=== PATIENT | male | born 1975 | race Caucasian/White ===

== ENCOUNTER 2018-01-01 14:50 | Emergency (ER) | payer MEDICAID, OTHER ==
[~2018-01-01] VITALS: Ht 182.9 cm; Wt 91.0 kg
[2018-01-01 15:18] VITALS: BP 119/69
[2018-01-01] MEDS ORDERED: SULF1TAB49 PO (16:19)
[2018-01-01] MEDS ORDERED: CEPH-572 PO (16:19)
== END 2018-01-01 16:31 | disposition home or self-care (01) ==
LOC: ER 14:53
DX: L03.115 Cellulitis of right lower limb (principal); Z79.899 Other long term (current) drug therapy
CPT/HCPCS: 99283

== ENCOUNTER 2018-11-22 14:54 | Emergency (ER) | payer OTHER ==
[~2018-11-22] VITALS: Ht 170.2 cm; Wt 104.5 kg
[2018-11-22 14:57] VITALS: BP 130/81
--- NOTE | 2018-11-22 15:19 | NUR ---
Pt seen by Smith PA for medical clearance.
== END 2018-11-22 15:34 ==
LOC: ER 14:55
DX: S20.419A Abrasion of unspecified back wall of thorax, initial encounter (principal); Z02.89 Encounter for other administrative examinations; Z98.890 Other specified postprocedural states; X58.XXXA Exposure to other specified factors, initial encounter; Y93.89 Activity, other specified; Y92.89 Other specified places as the place of occurrence of the external cause; Y99.8 Other external cause status
CPT/HCPCS: 99283

== ENCOUNTER 2024-10-30 11:18 | Day surgery (SDC) | payer MEDICAID, OTHER ==
[2024-10-28 11:15] LABS: BASOPHILS # (AUTO) 0.1 X10'3 (0-0.2); BASOPHILS % (AUTO) 0.9 % (0-1); EOSINOPHILS # (AUTO) 0.1 X10'3 (0-0.9); EOSINOPHILS % (AUTO) 1.2 % (0-6); LYMPHOCYTES # (AUTO) 2.4 X10'3 (1.1-4.8); LYMPHOCYTES % (AUTO) 26.9 % (21-51); MEAN CORPUSCULAR HEMOGLOBIN 31.5 PG (27.0-31.0); MEAN CORPUSCULAR HGB CONC 34.7 g/dL (33.0-36.5); MEAN CORPUSCULAR VOLUME 90.8 FL (78-98); MEAN PLATELET VOLUME 9.4 FL (7.4-10.4); MONOCYTES # (AUTO) 0.8 X10'3 (0-0.9); MONOCYTES % (AUTO) 8.8 % (2-12); NEUTROPHILS # (AUTO) 5.5 X10'3 (1.8-7.7); NEUTROPHILS % (AUTO) 62.2 % (42-75); PRE OP HEMATOCRIT 44.5 % (42.0-52.0); PRE OP HEMOGLOBIN 15.4 g/dL (14.0-17.9); PRE OP PLATELET COUNT 261 X10'3 (140-440); PRE OP WHITE BLOOD COUNT 8.9 10'3 (4.8-10.8); RED CELL DISTRIBUTION WIDTH 13.3 % (11.5-14.5)
[2024-10-28 11:23] LABS: ALBUMIN 3.9 G/DL (3.4-5.0); ALBUMIN/GLOBULIN RATIO 1.1 (1.1-1.5); ALKALINE PHOSPHATASE 76 IU/L (46-116); BLOOD UREA NITROGEN 20 MG/DL (7-18); BUN/CREATININE RATIO 18.9 (10.0-20.0); CALCIUM 8.6 MG/DL (8.5-10.1); CHLORIDE 105 MMOL/L (99-107); CREATININE 1.06 MG/DL (0.60-1.10); PRE OP ALT 54 U/L (30-65); PRE OP ANION GAP 8 (8-16); PRE OP AST 20 U/L (10-37); PRE OP BILIRUB, TOTAL 0.6 MG/DL (0.0-1.0); PRE OP GLUCOSE 99 MG/DL (70-104); PRE OP POTASSIUM 4.7 MMOL/L (3.4-5.1); PRE OP SODIUM 140 MMOL/L (135-145); TOTAL CARBON DIOXIDE 27.1 MMOL/L (24-32); TOTAL PROTEIN 7.4 G/DL (6.4-8.2); eGFR 74 ML/MIN
[2024-10-30] VITALS (8 sets, daily range): BP systolic 133–159; BP diastolic 62–101; PULSE 64–99; RESP 11–16; TEMP 98; O2SAT 78–99
[~2024-10-30] VITALS: Ht 182.9 cm; Wt 118.4 kg
[2024-10-30] MEDS: ceFAZolin 2gm in dextrose, iso 50 ML IV ONE (05:30)
[~2024-10-30 11:18] MED LIST: ATOR20TA66 PO; BUDE10.2 INH; BUPIVAcaine 2.5mg/ml inj 50ml vial (contains preservative) ONE; DEXTROSE IV ONE; LIDOcaine 1% 30ml preserv. free vial ONE; LIDOcaine 2% (20mg/ml) 5ml vial ONE; OMEP20TA43 PO; SODIUM PHOSPHATE IV ONE; acetaminophen 1,000mg/100ml IV 100 ML IV ONE; dexamethasone sod phosphate 4mg/ml inj. ONE; fentaNYL/PF 50MCG/1 ML 2ML syringe ONE; midazolam 1 mg/ML 2ml injection ONE; ondansetron/PF 4mg/2ml inj ONE; potassium Cl 40MEQ/1/2NS 520ml 520 ML IV ONE; propofol inj 20 ML IV ONE
[2024-10-30] MEDS: famotidine 20mg tablet PO ONE (12:10)
[2024-10-30] MEDS: ringers solution, lacted 1,000 ML IV SCH (12:10)
[2024-10-30] MEDS ORDERED: sevoflurane 250ml liquid IH ONE (13:39)
[2024-10-30] MEDS ORDERED: fentaNYL/PF 50MCG/1 ML 2ML syringe ONE (13:42)
[2024-10-30] MEDS ORDERED: midazolam 1 mg/ML 2ml injection ONE (13:43)
[2024-10-30] MEDS ORDERED: dexamethasone sod phosphate 4mg/ml inj. ONE (13:46)
[2024-10-30] MEDS ORDERED: ondansetron/PF 4mg/2ml inj ONE (13:46)
[2024-10-30] MEDS ORDERED: propofol inj 20 ML IV ONE (13:46)
[2024-10-30] MEDS ORDERED: LIDOcaine 2% (20mg/ml) 5ml vial ONE (13:46)
[2024-10-30] MEDS ORDERED: acetaminophen 1,000mg/100ml IV 100 ML IV ONE (13:47)
[2024-10-30] MEDS: BUPIVAcaine/PF 2.5 mg/ml (0.25%) 30ml vial IJ ONE (13:57)
[2024-10-30] MEDS ORDERED: ringers solution, lacted 1,000 ML IV SCH (14:15)
[2024-10-30] MEDS ORDERED: fentaNYL/PF 50MCG/1 ML 2ML syringe IV PRN (14:15)
[2024-10-30] MEDS ORDERED: ondansetron/PF 4mg/2ml inj IV PRN (14:15)
[2024-10-30] MEDS ORDERED: morphine 4 MG/ML inj SYRINge IV PRN (14:15)
[2024-10-30] MEDS ORDERED: hydrALAZINE 20mg/ml inj. IV PRN (14:15)
[2024-10-30] MEDS ORDERED: bacitracin 15gm ointment TP ONE (14:23)
[2024-10-30] MEDS: morphine 2 MG/ML inj. syringe IV PRN (14:58)
[2024-10-30] MEDS: fentaNYL/PF 50MCG/1 ML 2ML syringe IV PRN (15:07)
[2024-10-30] MEDS: HYDROcodone/acetaminophen 5mg/325mg tablet PO PRN (15:17)
[2024-10-30] MEDS: labetalol 20mg/4ml (5mg/ml) syringe IV PRN (15:21)
== END 2024-10-30 15:50 | disposition home or self-care (01) ==
LOC: PAS 11:18
PROVIDERS: ATTEND Surgery
DX: N43.3 Hydrocele, unspecified (principal); Z79.899 Other long term (current) drug therapy; N18.9 Chronic kidney disease, unspecified; J45.909 Unspecified asthma, uncomplicated; K21.9 Gastro-esophageal reflux disease without esophagitis; K76.0 Fatty (change of) liver, not elsewhere classified; Z98.890 Other specified postprocedural states; Z89.022 Acquired absence of left finger(s); Z82.49 Family history of ischemic heart disease and other diseases of the circulatory system; Z82.3 Family history of stroke; Z82.61 Family history of arthritis; Z83.3 Family history of diabetes mellitus; F17.210 Nicotine dependence, cigarettes, uncomplicated
CPT/HCPCS: 36415; 55040; 80053; 82948; 85025; J0131; J0690; J1100; J2003; J2250; J2270; J2405; J2704; J3010; J3480; J3490; J7030; J7120; Z7506; Z7512; A4215; A4618; A6449; A7000

== ENCOUNTER 2024-12-11 11:03 | Day surgery (SDC) | payer MEDICAID ==
[2024-12-04 16:05] LABS: ALANINE AMINOTRANSFERASE 62 U/L (12-78); ALBUMIN 3.9 G/DL (3.4-5.0); ALBUMIN/GLOBULIN RATIO 1.1 (1.1-1.5); ALKALINE PHOSPHATASE 84 IU/L (46-116); ANION GAP 6 (8-16); ASPARTATE AMINO TRANSFERASE 21 U/L (10-37); BILIRUBIN,TOTAL 0.5 MG/DL (0.1-1.0); BLOOD UREA NITROGEN 15 MG/DL (7-18); CALCIUM 8.8 MG/DL (8.5-10.1); CHLORIDE 104 MMOL/L (99-107); CREATININE 1.15 MG/DL (0.60-1.10); GLUCOSE 84 MG/DL (70-104); POTASSIUM 4.3 MMOL/L (3.5-5.1); SODIUM 141 MMOL/L (135-145); TOTAL CARBON DIOXIDE 30.8 MMOL/L (24-32); TOTAL PROTEIN 7.6 G/DL (6.4-8.2); eGFR 68 ML/MIN
[2024-12-04 16:22] LABS: BASOPHILS % (AUTO) 0.5 % (0-1); EOSINOPHILS # (AUTO) 0.1 X10'3 (0-0.9); EOSINOPHILS % (AUTO) 1.4 % (0-6); HEMATOCRIT 46.3 % (42.0-52.0); LYMPHOCYTES # (AUTO) 3.2 X10'3 (1.1-4.8); LYMPHOCYTES % (AUTO) 32.3 % (21-51); MEAN CORPUSCULAR HEMOGLOBIN 31.2 PG (27.0-31.0); MEAN CORPUSCULAR HGB CONC 34.5 g/dL (33.0-36.5); MEAN CORPUSCULAR VOLUME 90.4 FL (78-98); MEAN PLATELET VOLUME 8.7 FL (7.4-10.4); MONOCYTES # (AUTO) 0.9 X10'3 (0-0.9); MONOCYTES % (AUTO) 8.6 % (2-12); NEUTROPHILS # (AUTO) 5.7 X10'3 (1.8-7.7); NEUTROPHILS % (AUTO) 57.2 % (42-75); PLATELET COUNT 279 X10'3 (140-440); RED BLOOD COUNT 5.12 X10'6 (4.70-6.10); RED CELL DISTRIBUTION WIDTH 13.1 % (11.5-14.5)
[~2024-12-11] VITALS: Ht 182.9 cm; Wt 118.5 kg
[2024-12-11] VITALS (10 sets, daily range): BP systolic 133–164; BP diastolic 84–105; PULSE 62–108; RESP 10–19; TEMP 98.5; O2SAT 93–99
[2024-12-11] MEDS: ceFAZolin 2gm/dext,iso 50mL 50 ML IV ONE (05:30)
[~2024-12-11 11:03] MED LIST changes: -BUDE10.2 INH; -DEXTROSE IV ONE; -LIDOcaine 2% (20mg/ml) 5ml vial ONE; -OMEP20TA43 PO; -SODIUM PHOSPHATE IV ONE; -acetaminophen 1,000mg/100ml IV 100 ML IV ONE; +albuterol 2.5 MG/3 ML nebule NEB ONE; -dexamethasone sod phosphate 4mg/ml inj. ONE; -fentaNYL/PF 50MCG/1 ML 2ML syringe ONE; -midazolam 1 mg/ML 2ml injection ONE; -ondansetron/PF 4mg/2ml inj ONE; -potassium Cl 40MEQ/1/2NS 520ml 520 ML IV ONE; -propofol inj 20 ML IV ONE
[2024-12-11] MEDS ORDERED: morphine 2 MG/ML inj. syringe IV PRN (11:15)
[2024-12-11] MEDS ORDERED: hydrALAZINE 20mg/ml inj. IV PRN (11:15)
[2024-12-11] MEDS ORDERED: proCHLORperazine 10 MG/2 ml inj IV PRN (11:15)
[2024-12-11] MEDS ORDERED: ondansetron/PF 4mg/2ml inj IV PRN (11:15)
[2024-12-11] MEDS ORDERED: ringers solution, lacted 1,000 ML IV SCH (11:15)
[2024-12-11] MEDS ORDERED: meperidine/PF 25mg/ml syringe IV PRN (11:15)
[2024-12-11] MEDS ORDERED: acetaminophen 1,000mg/100ml IV 100 ML IV PRN (11:15)
[2024-12-11] MEDS ORDERED: HYDROmorphone/PF 0.2 MG/ML SYRINGE IV PRN (11:15)
[2024-12-11] MEDS: famotidine 20mg tablet PO ONE (12:14)
[2024-12-11] MEDS: ringers solution, lacted 1,000 ML IV SCH (12:15)
[2024-12-11] MEDS ORDERED: fentaNYL /PF 50mcg/ml 5ml ampule ONE (13:05)
[2024-12-11] MEDS ORDERED: midazolam 1 mg/ML 2ml injection ONE (13:05)
[2024-12-11] MEDS: BUPIVAcaine/PF 2.5 mg/ml (0.25%) 30ml vial IJ ONE (13:14)
[2024-12-11] MEDS ORDERED: rocuronium 10mg/ml inj IV ONE ×2 (13:23→14:28)
[2024-12-11] MEDS ORDERED: LIDOcaine 2% (20mg/ml) 5ml vial ONE (13:23)
[2024-12-11] MEDS ORDERED: propofol inj 20 ML IV ONE (13:23)
[2024-12-11] MEDS ORDERED: dexamethasone sod phosphate 4mg/ml inj. ONE (13:23)
[2024-12-11] MEDS ORDERED: ondansetron/PF 4mg/2ml inj ONE (13:24)
[2024-12-11] MEDS ORDERED: ceFAZolin 1000mg inj ONE (13:24)
[2024-12-11] MEDS ORDERED: glycopyrrolate 0.2mg/ml inj ONE (15:19)
[2024-12-11] MEDS ORDERED: neostigmine methylsulfate 1 MG/ML 10ml vial ONE (15:19)
[2024-12-11] MEDS: morphine 4 MG/ML inj SYRINge IV PRN (15:45)
--- NOTE | 2024-12-11 15:51 | OPERATIVE REPORT ---
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 Patient was placed supine and general anesthesia was induced. The patient's abdomen was prepped and draped in the standard sterile fashion. Preoperative antibiotics were given. Supraumbilical, midline incision was made to accommodate a 12 mm Marcus port. During dissection, some herniated preperitoneal fat through a fascial defect was encountered. Defect was a cm in size. The herniated preperitoneal fat was mobilized away from the umbilical skin down to the level of the fascia and reduced. Defect was extended to accommodate a 12 mm Marcus port. Marcus technique was used to gain access into the abdomen and the port was anchored to the fascia with 0 Vicryl suture. Abdomen was insufflated without incident. Laparoscope was inserted and the pelvis examined. Patient was placed in Trendelenburg position. Secondary, 8.5 mm robotic trochars were then placed in the right lateral left lateral upper abdomen just above the umbilical line. These were placed under laparoscopic guidance. Local anesthetic was infiltrated prior to their insertion. The da Saul robotic arm was docked to the patient. Instruments were guided intra-abdominally under laparoscopic visualization. Peritoneal rent was created starting at the left anterior superior iliac spine and carried across the anterior abdominal wall to the contralateral anterior superior iliac spine. The peritoneal flap was created and carried down to the symphysis pubis. Dissection was carried out bilaterally. Bilaterally, small indirect inguinal hernias were encountered and reduced. On the right, there was a very, very large fatty spermatic cord tumor that was mobilized out of the indirect space and and away from the cord structures. This was amputated and the retroperitoneum and set aside. On the left, there was a 2nd, a suspected spermatic cord lipoma that was also mobilized away from the cord structures and amputated near the retroperitoneal interface. Peritoneum was dissected away from the cord structures and out laterally to accommodate 2 separate pieces of large Dextile mesh. Bilateral critical views of the myopectineal orifice were obtained. Mesh and suture was passed into the abdomen. Bilateral mesh was placed covering potential obturator, femoral, direct, and indirect hernia spaces. Mesh was anchored at Bharat's ligament, rec tus muscle in the midline, and out laterally just anterior to the anterior superior iliac spine. Mesh laid without wrinkles or folds. Peritoneal rent was then reapproximated with running, absorbable 2/0 V-lock suture. [place] were retrieved. The bilateral spermatic cord tumors, suspected to be completely benign, were sent to pathology for confirmatory testing. Abdomen was allowed to desufflate after instruments removed and da Saul robotic arm undocked from the patient. Umbilical port was removed as were the secondary trochars. The fascia at the umbilical port site was closed with a combination of 0 Ethibond and 0 Vicryl sutures; thus repairing the hernia. Skin was closed at all sites with 4- 0 Monocryl sutures in a subcuticular fashion. Sterile dressings were applied. Patient was awakened and taken to the postanesthesia care unit in stable condition. Counts repoted as correct: Yes ARJUN BARTON MD December 11, 2024 15:51
[2024-12-11] MEDS: HYDROmorphone/PF 0.2 MG/ML SYRINGE IV PRN (16:13)
[2024-12-11] MEDS: HYDROcodone/acetaminophen 5mg/325mg tablet PO PRN (16:27)
--- NOTE | 2024-12-12 15:36 | PATHOLOGY REPORT ---
[facility] [address] [place] [address] SURGICAL PATHOLOGY REPORT CaseNumber: [id number] Surgeon:Arjun Romeo M.D. CLINICAL INFORMATION CLINICAL INFORMATION: Bilateral inguinal hernia repair. DIAGNOSIS DIAGNOSIS: SOFT TISSUE, BILATERAL SPERMATIC CORDS; EXCISION - LIPOMA. - NEGATIVE FOR ATYPIA AND MALIGNANCY. MICROSCOPIC DESCRIPTION MICROSCOPIC DESCRIPTION: Performed. (st) GROSS DESCRIPTION GROSS DESCRIPTION: Received in a container of formalin labeled with the patient's name, number, and " bilateral spermatic cord tumor" is a 32 g irregularly shaped excision of fat which measures 4 x 4 x 2 cm. Sectioning reveals lobulated mature-appearing adipose tissue without areas of hemorrhage, nodula rity, or necrosis. Bioengineer sections are submitted as [id number]. The time at which the specimen was removed was 1455. The time at which the specimen was placed in formalin was 1455. (orb) Electronically signed by: Preston Herrera D.O. 12/12/2024 3:01:00 PM
== END 2024-12-11 17:03 | disposition home or self-care (01) ==
LOC: PAS 11:03
PROVIDERS: ATTEND Surgery
DX: K40.20 Bilateral inguinal hernia, without obstruction or gangrene, not specified as recurrent (principal); K42.9 Umbilical hernia without obstruction or gangrene; D17.6 Benign lipomatous neoplasm of spermatic cord; I10 Essential (primary) hypertension; K21.9 Gastro-esophageal reflux disease without esophagitis; J44.9 Chronic obstructive pulmonary disease, unspecified; K76.0 Fatty (change of) liver, not elsewhere classified; Z79.899 Other long term (current) drug therapy; Z98.890 Other specified postprocedural states
CPT/HCPCS: 36415; 49591; 49650; 80053; 82948; 85025; C1781; J0690; J1100; J1171; J2003; J2250; J2270; J2405; J2704; J2710; J3010; J3490; J7030; J7120; S2900; Z7506; Z7508; Z7512; A4215; A4618; A6446; A6449